=== PATIENT | male | born 1970 | race Caucasian/White ===

== ENCOUNTER 2018-03-24 11:51 | Emergency (ER) | payer BC ==
[~2018-03-24] VITALS: Ht 180.3 cm; Wt 91.7 kg
[2018-03-24 11:57] VITALS: Ht 180.3 cm; Wt 91.7 kg
[2018-03-24 13:10] VITALS: BP 135/81
== END 2018-03-24 13:24 | disposition home or self-care (01) ==
LOC: ED 11:51
PROC: 0HQGXZZ Repair Left Hand Skin, External Approach (ICD-10-PCS; principal; 2018-03-24)
PROC: 3E0234Z Introduction of Serum, Toxoid and Vaccine into Muscle, Percutaneous Approach (ICD-10-PCS; 2018-03-24)
DX: S61.412A Laceration without foreign body of left hand, initial encounter (principal); W26.8XXA Contact with other sharp object(s), not elsewhere classified, initial encounter; Y92.89 Other specified places as the place of occurrence of the external cause
CPT/HCPCS: A4570; J2001